=== PATIENT | female | born 1995 | race African-American/Black ===

== ENCOUNTER 2022-11-04 08:57 | Emergency (ER) | payer OTHER ==
[~2022-11-04] VITALS: Ht 165.1 cm; Wt 68.2 kg
[2022-11-04 09:49] VITALS: BP 114/65
== END 2022-11-04 11:32 | disposition home or self-care (01) ==
LOC: EMS 08:57
DX: Z32.02 Encounter for pregnancy test, result negative (principal)
CPT/HCPCS: 84702; 99283

== ENCOUNTER 2024-01-17 07:56 | Emergency (ER) | payer OTHER ==
[~2024-01-17] VITALS: Ht 162.6 cm; Wt 72.7 kg
[2024-01-17 08:07] VITALS: TEMP 97.9
[2024-01-17 08:28] LABS: APPEARANCE,URINE CLEAR (CLEAR); BILIRUBIN,URINE NEGATIVE (NEGATIVE); COLOR,URINE YELLOW (YELLOW); GLUCOSE, URINE (UA) NEGATIVE (NEGATIVE); KETONES,URINE NEGATIVE (NEGATIVE); LEUKOCYTE ESTERASE ,URINE LARGE (NEGATIVE); NITRATE,URINE NEGATIVE (NEGATIVE); OCCULT BLOOD,URINE TRACE (NEGATIVE); PROTEIN,URINE 30-70 mg/dL (NEGATIVE); SPECIFIC GRAVITIY, URINE 1.035 (1.003-1.030)
[2024-01-17 08:32] LABS: BACTERIA,URINE Moderate /HPF (None Seen); RBC,URINE 0-2 /HPF (0-2); SQUAMOUS EPITHELIAL CELL,UR Many /LPF (None Seen)
[2024-01-17] MEDS ORDERED: CEPH-558 PO (10:19)
[2024-01-17 10:30] VITALS: BP 113/69; PULSE 83; RESP 18
[2024-01-17] MEDS: CefTRIAXone SODIUM 1 GM/VIAL IM ONE (11:05)
[2024-01-17] MEDS: LIDOCAINE/PF 1% 2 ML VIAL IM ONE (11:06)
[2024-01-17] MEDS: AZITHROMYCIN 500 MG TABLET PO ONE (11:06)
== END 2024-01-17 11:14 | disposition home or self-care (01) ==
LOC: EMS 07:56
DX: A64 Unspecified sexually transmitted disease (principal); N34.2 Other urethritis
CPT/HCPCS: 99283; 81001; 84703; 87086; 87186; 87491; 87591; 96372; J0696; J3490; Q9967

== ENCOUNTER 2024-11-07 17:27 | Emergency (ER) | payer MEDICAID, OTHER ==
[~2024-11-07] VITALS: Ht 162.6 cm; Wt 72.7 kg
[~2024-11-07 17:27] MED LIST: CEPH-558 PO
[2024-11-07 17:37] VITALS: TEMP 98.7
[2024-11-07] MEDS: ACETAMINOPHEN 500 MG TABLET PO ONE (19:25)
[2024-11-07] MEDS: IBUPROFEN 400 MG TABLET PO ONE (19:26)
[2024-11-07 19:50] LABS: BASOPHILS % (AUTO) 0.7 % (0.0-2.0); EOSINOPHILS % (AUTO) 2.2 % (1.0-6.0); HEMATOCRIT 33.6 % (36-46); HEMOGLOBIN 11.2 g/dL (12.0-16.0); LYMPHOCYTES # (AUTO) 2.2 K/uL (1.0-4.8); LYMPHOCYTES % (AUTO) 24.9 % (22.0-44.0); MEAN CORPUSCULAR HEMOGLOBIN 29.5 pg (26.0-34.0); MEAN CORPUSCULAR HGB CONC 33.2 G/dL (31.0-37.0); MEAN CORPUSCULAR VOLUME 89 fL (80-100); MONOCYTES # (AUTO) 0.6 K/uL (0.1-1.0); NEUTROPHILS # (AUTO) 5.9 K/uL (1.8-7.7); NEUTROPHILS % (AUTO) 65.2 % (40.0-70.0); PLATELET COUNT (AUTO) 612 K/uL (150-450); RED BLOOD CELL COUNT(AUTO) 3.78 MIL/uL (4.00-5.20)
[2024-11-07 19:55] LABS: ANION GAP 6 mmol/L (8-16); CALCIUM, TOTAL 9.3 mg/dL (8.8-10.5); CARBON DIOXIDE 29 mmol/L (22-29); CHLORIDE 103 mmol/L (98-107); CREATININE 0.61 mg/dL (0.60-1.30); GLOMERULAR FILTR. RATE CALC > 60 mL/min (>60); GLUCOSE,RANDOM 99 mg/dL (70-110); SODIUM SERUM 138 mmol/L (136-145); UREA NITROGEN, BLOOD 19 mg/dL (7-18)
[2024-11-07] MEDS ORDERED: 0.9% SODIUM CHLORIDE 10 ML SYRINGE IVP ONE (20:36)
[2024-11-07] MEDS ORDERED: SODIUM CHLORIDE 0.9% 100 ML ONE (20:36)
[2024-11-07] MEDS ORDERED: IOHEXOL 350 MG/ML 100 ML VIAL ONE (20:36)
[2024-11-07 23:01] VITALS: BP 122/59; PULSE 82; RESP 15; O2SAT 100
== END 2024-11-07 23:16 | disposition home or self-care (01) ==
LOC: EMS 17:52
DX: G89.18 Other acute postprocedural pain (principal)
CPT/HCPCS: 99285; 74177; 80048; 84703; 85025; 36415; Q9967; J7050